=== PATIENT | female | born 1980 | race Caucasian/White ===

== ENCOUNTER 2018-04-07 13:50 | Inpatient (IN) | payer MEDICAID ==
[~2018-04-07] VITALS: Ht 157.5 cm; Wt 52.2 kg
[2018-04-07 15:36] VITALS: BP 125/69
[2018-04-07] MEDS ORDERED: VENL-68 PO (16:27)
[2018-04-07] MEDS ORDERED: TRAZ-220 PO (16:27)
[2018-04-07] MEDS ORDERED: SUMA100T PO (16:27)
[2018-04-07] MEDS ORDERED: LAMO100 PO (16:27)
[2018-04-07] MEDS ORDERED: GABA-533 PO (16:27)
[2018-04-07] MEDS ORDERED: BUPR1FIL SL (16:27)
[2018-04-07] MEDS ORDERED: TOPI25 PO (16:27)
[2018-04-07 17:15] VITALS: BP 123/76
[2018-04-07] MEDS: LORazepam 2 MG TABLET PO PRN (17:29)
[2018-04-07] MEDS ORDERED: PNEUMOCOCCAL VACCINE POLYVALENT 0.5 ML VIAL [PPSV23] IM ONE (18:15)
[2018-04-07] MEDS: LamoTRIgine 100 MG TABLET PO SCH (20:45)
[2018-04-07] MEDS: TOPIRAMATE 25 MG TABLET PO SCH (20:45)
[2018-04-07] MEDS: ZOLPIDEM TARTRATE 10 MG TABLET PO PRN (20:45)
[2018-04-08 04:08] VITALS: BP 120/78
[2018-04-08] MEDS: LORazepam 2 MG TABLET PO PRN ×2 (07:11→16:40)
[2018-04-08] MEDS: SUMAtriptan SUCCINATE 100 MG TABLET PO PRN (07:20)
[2018-04-08 08:18] VITALS: BP 106/69
[2018-04-08 08:57] LABS: BASOPHILS % (AUTO) 1.9 % (0.0-2.0); HEMATOCRIT 38.6 % (36-46); HEMOGLOBIN 13.3 g/dL (12.0-16.0); LYMPHOCYTES # (AUTO) 1.3 K/uL (1.0-4.8); LYMPHOCYTES % (AUTO) 37.6 % (22.0-44.0); MEAN CORPUSCULAR HEMOGLOBIN 31.8 pg (26.0-34.0); MEAN CORPUSCULAR HGB CONC 34.5 G/dL (31.0-37.0); MEAN CORPUSCULAR VOLUME 92 fL (80-100); MONOCYTES # (AUTO) 0.2 K/uL (0.1-1.0); MONOCYTES % (AUTO) 7.1 % (2.0-9.0); NEUTROPHILS # (AUTO) 1.5 K/uL (1.8-7.7); NEUTROPHILS % (AUTO) 44.4 % (40.0-70.0); PLATELET COUNT (AUTO) 254 K/uL (150-450); RED BLOOD CELL COUNT(AUTO) 4.18 MIL/uL (4.00-5.20); RED CELL DISTRIBUTION WIDTH 12.5 % (11.5-14.5)
[2018-04-08] MEDS ORDERED: NICOTINE 7 MG/24 HOUR PATCH TD SCH (09:00)
[2018-04-08] MEDS: VENLAFAXINE HCL 75 MG ER CAPSULE PO SCH (09:12)
[2018-04-08] MEDS: BusPIRone HCL 5 MG TABLET PO SCH ×3 (09:13→16:40)
[2018-04-08] MEDS: QUEtiapine FUMARATE 25 MG TABLET PO SCH ×2 (09:13→16:40)
[2018-04-08 09:54] LABS: ALANINE AMINOTRANSFERASE 23 U/L (12-78); ALBUMIN 3.7 g/dL (3.4-5.0); ALKALINE PHOSPHATASE 60 U/L (46-116); ANION GAP 7 mmol/L (8-16); ASPARTATE AMINOTRANSFERASE 15 U/L (15-37); BILIRUBIN,TOTAL 0.3 mg/dL (0.1-1.0); CALCIUM, TOTAL 8.4 mg/dL (8.8-10.5); CARBON DIOXIDE 27 mmol/L (22-29); CHLORIDE 106 mmol/L (98-107); CHOL/HDL RATIO 3.7 (3.9-5.7); CHOLESTEROL 209 mg/dL (131-200); CREATININE 0.89 mg/dL (0.60-1.30); FREE T4 (FREE THYROXINE) 0.79 ng/dL (0.76-1.46); GLOMERULAR FILTR. RATE CALC > 60 mL/min (>60); GLUCOSE,RANDOM 109 mg/dL (70-110); HCG,QUANTITATIVE 1 mIU/mL (0-6); HDL CHOLESTEROL 56 mg/dL (40-60); LDL CHOL (CALC.) 137 mg/dL (0-130); POTASSIUM 3.7 mmol/L (3.5-5.1); SODIUM SERUM 140 mmol/L (136-145); THYROID STIMULATING HORMONE 0.94 uIU/mL (0.36-3.74); TOTAL PROTEIN, SERUM 6.5 g/dL (6.4-8.2); TRIGLYCERIDES 79 mg/dL (15-150); UREA NITROGEN, BLOOD 12 mg/dL (7-18)
[2018-04-08] MEDS ORDERED: ACETAMINOPHEN 325 MG TABLET PO PRN (10:15)
[2018-04-08] MEDS: BACITRACIN 28.4 GM OINTMENT TP SCH ×2 (10:33→16:40)
[2018-04-08] MEDS ORDERED: CloNIDine HCL 0.1 MG TABLET PO PRN (11:15)
[2018-04-08] MEDS ORDERED: ALBUTEROL SULFATE HFA 90 MCG/PUFF 8 GM INHALER IH PRN (11:15)
[2018-04-08] MEDS ORDERED: MAGNESIUM HYDROXIDE SUSPENSION 30 ML UDCUP PO PRN (11:15)
[2018-04-08] MEDS ORDERED: PETROLATUM,WHITE 71 GM JELLY TP PRN (11:15)
[2018-04-08] MEDS ORDERED: DOCUSATE SODIUM 100 MG CAPSULE PO PRN (11:15)
[2018-04-08] MEDS ORDERED: MAG HYDROX/AL HYDROX/SIMETH ES 30 ML SUSPENSION UDCUP PO PRN (11:15)
[2018-04-08] MEDS ORDERED: ONDANSETRON HCL 4 MG TABLET PO PRN (11:15)
[2018-04-08] MEDS ORDERED: LOPERAMIDE HCL 2 MG CAPSULE PO PRN (11:15)
[2018-04-08 13:23] VITALS: BP 118/65
[2018-04-08 16:00] VITALS: BP 106/68
[2018-04-08] MEDS: TOPIRAMATE 25 MG TABLET PO SCH (20:31)
[2018-04-08] MEDS: LamoTRIgine 100 MG TABLET PO SCH (20:32)
[2018-04-09 01:50] VITALS: BP 103/72
[2018-04-09] MEDS: ZOLPIDEM TARTRATE 10 MG TABLET PO PRN ×2 (02:04→20:03)
[2018-04-09] MEDS: ACETAMINOPHEN 325 MG TABLET PO PRN (02:05)
[2018-04-09] MEDS: IBUPROFEN 400 MG TABLET PO PRN ×2 (07:07→15:39)
[2018-04-09 07:08] VITALS: BP 106/67
[2018-04-09 08:25] VITALS: BP 111/69
[2018-04-09] MEDS: NICOTINE 14 MG/24 HOUR PATCH TD SCH (09:00)
[2018-04-09 09:04] LABS: HEMOGLOBIN A1C 5.5 % (4.5-6.2)
[2018-04-09] MEDS: QUEtiapine FUMARATE 100 MG TABLET PO SCH ×2 (09:11→16:05)
[2018-04-09] MEDS: GABAPENTIN 400 MG CAPSULE PO SCH ×3 (09:11→16:05)
[2018-04-09] MEDS: LORazepam 2 MG TABLET PO PRN ×3 (09:11→22:12)
[2018-04-09] MEDS: BusPIRone HCL 10 MG TABLET PO SCH ×3 (09:11→16:04)
[2018-04-09] MEDS: VENLAFAXINE HCL 75 MG ER CAPSULE PO SCH (09:11)
[2018-04-09 09:14] LABS: CHOL/HDL RATIO 4.3 (3.9-5.7)
[2018-04-09] MEDS: BACITRACIN 28.4 GM OINTMENT TP SCH ×2 (09:16→16:05)
[2018-04-09 09:30] LABS: THYROID STIMULATING HORMONE 0.5 uIU/mL (0.36-3.74)
[2018-04-09 16:03] VITALS: BP 128/81
[2018-04-09 18:00] LABS: FOLATE SERUM 12.4 ng/mL (5.4-)
[2018-04-09] MEDS: LamoTRIgine 100 MG TABLET PO SCH (20:02)
[2018-04-09] MEDS: TOPIRAMATE 25 MG TABLET PO SCH (20:03)
[2018-04-10 03:57] VITALS: BP 105/75
[2018-04-10] MEDS: ACETAMINOPHEN 325 MG TABLET PO PRN ×2 (04:05→16:13)
[2018-04-10] MEDS: LORazepam 2 MG TABLET PO PRN ×4 (04:05→23:00)
[2018-04-10] MEDS: GABAPENTIN 400 MG CAPSULE PO SCH ×3 (08:20→16:11)
[2018-04-10] MEDS: QUEtiapine FUMARATE 100 MG TABLET PO SCH ×2 (08:20→16:11)
[2018-04-10] MEDS: BusPIRone HCL 10 MG TABLET PO SCH ×3 (08:20→16:11)
[2018-04-10] MEDS: VENLAFAXINE HCL 75 MG ER CAPSULE PO SCH (08:20)
[2018-04-10] MEDS: NICOTINE 14 MG/24 HOUR PATCH TD SCH (08:26)
[2018-04-10] MEDS: BACITRACIN 28.4 GM OINTMENT TP SCH ×2 (08:26→16:11)
[2018-04-10 08:29] VITALS: BP 100/80
[2018-04-10] MEDS: IBUPROFEN 400 MG TABLET PO PRN ×2 (09:10→20:18)
[2018-04-10 16:15] VITALS: BP 112/66
[2018-04-10] MEDS: TOPIRAMATE 25 MG TABLET PO SCH (20:16)
[2018-04-10] MEDS: LamoTRIgine 100 MG TABLET PO SCH (20:16)
[2018-04-10] MEDS: ZOLPIDEM TARTRATE 10 MG TABLET PO PRN (20:23)
[2018-04-11 01:07] VITALS: BP 140/85
[2018-04-11] MEDS: ACETAMINOPHEN 325 MG TABLET PO PRN (01:10)
[2018-04-11] MEDS: LORazepam 2 MG TABLET PO PRN ×4 (06:45→20:32)
[2018-04-11] MEDS: NICOTINE 14 MG/24 HOUR PATCH TD SCH (09:00)
[2018-04-11 09:18] VITALS: BP 134/74
[2018-04-11] MEDS: BusPIRone HCL 10 MG TABLET PO SCH (09:52)
[2018-04-11] MEDS: GABAPENTIN 400 MG CAPSULE PO SCH ×3 (09:52→16:14)
[2018-04-11] MEDS: QUEtiapine FUMARATE 100 MG TABLET PO SCH ×2 (09:52→16:15)
[2018-04-11] MEDS: BACITRACIN 28.4 GM OINTMENT TP SCH ×2 (09:52→16:15)
[2018-04-11] MEDS: VENLAFAXINE HCL 75 MG ER CAPSULE PO SCH (09:52)
[2018-04-11] MEDS: BusPIRone HCL 15 MG TABLET PO SCH ×2 (13:01→16:14)
[2018-04-11] MEDS: IBUPROFEN 400 MG TABLET PO PRN (13:02)
[2018-04-11 16:13] VITALS: BP 133/84
[2018-04-11] MEDS: LamoTRIgine 100 MG TABLET PO SCH (20:31)
[2018-04-11] MEDS: TOPIRAMATE 25 MG TABLET PO SCH (20:32)
[2018-04-12 02:44] VITALS: BP 129/69
[2018-04-12] MEDS: IBUPROFEN 400 MG TABLET PO PRN (02:44)
[2018-04-12] MEDS: LORazepam 2 MG TABLET PO PRN ×4 (03:55→22:01)
[2018-04-12] MEDS: NICOTINE 14 MG/24 HOUR PATCH TD SCH (09:00)
[2018-04-12 09:10] VITALS: BP 112/72
[2018-04-12] MEDS: GABAPENTIN 400 MG CAPSULE PO SCH ×3 (09:10→16:04)
[2018-04-12] MEDS: VENLAFAXINE HCL 75 MG ER CAPSULE PO SCH (09:10)
[2018-04-12] MEDS: FOLIC ACID 1 MG TABLET PO SCH (09:11)
[2018-04-12] MEDS: QUEtiapine FUMARATE 100 MG TABLET PO SCH ×2 (09:11→16:05)
[2018-04-12] MEDS: BusPIRone HCL 15 MG TABLET PO SCH ×3 (09:11→16:05)
[2018-04-12] MEDS: BACITRACIN 28.4 GM OINTMENT TP SCH ×2 (09:12→16:05)
[2018-04-12] MEDS: SUMAtriptan SUCCINATE 100 MG TABLET PO PRN (10:30)
[2018-04-12 16:00] VITALS: BP 110/83
[2018-04-12] MEDS: TOPIRAMATE 25 MG TABLET PO SCH (20:18)
[2018-04-12] MEDS: LamoTRIgine 100 MG TABLET PO SCH (20:18)
[2018-04-12] MEDS: ZOLPIDEM TARTRATE 10 MG TABLET PO PRN (20:38)
[2018-04-13 04:20] VITALS: BP 130/72
[2018-04-13] MEDS: LORazepam 2 MG TABLET PO PRN ×4 (04:24→22:20)
[2018-04-13] MEDS: IBUPROFEN 400 MG TABLET PO PRN (07:34)
[2018-04-13 08:24] VITALS: BP 114/64
[2018-04-13] MEDS: GABAPENTIN 400 MG CAPSULE PO SCH ×3 (08:44→16:16)
[2018-04-13] MEDS: QUEtiapine FUMARATE 100 MG TABLET PO SCH (08:44)
[2018-04-13] MEDS: BusPIRone HCL 15 MG TABLET PO SCH ×3 (08:44→16:16)
[2018-04-13] MEDS: VENLAFAXINE HCL 75 MG ER CAPSULE PO SCH (08:45)
[2018-04-13] MEDS: FOLIC ACID 1 MG TABLET PO SCH (08:45)
[2018-04-13] MEDS: NICOTINE 14 MG/24 HOUR PATCH TD SCH (08:48)
[2018-04-13 09:06] LABS: BASOPHILS % (AUTO) 1.1 % (0.0-2.0); EOSINOPHILS % (AUTO) 4.4 % (1.0-6.0); HEMATOCRIT 39.6 % (36-46); HEMOGLOBIN 13.9 g/dL (12.0-16.0); LYMPHOCYTES # (AUTO) 1.6 K/uL (1.0-4.8); LYMPHOCYTES % (AUTO) 36.1 % (22.0-44.0); MEAN CORPUSCULAR HEMOGLOBIN 32.2 pg (26.0-34.0); MEAN CORPUSCULAR HGB CONC 35.1 G/dL (31.0-37.0); MEAN CORPUSCULAR VOLUME 92 fL (80-100); MONOCYTES # (AUTO) 0.3 K/uL (0.1-1.0); NEUTROPHILS # (AUTO) 2.3 K/uL (1.8-7.7); NEUTROPHILS % (AUTO) 52.4 % (40.0-70.0); PLATELET COUNT (AUTO) 247 K/uL (150-450); RED BLOOD CELL COUNT(AUTO) 4.32 MIL/uL (4.00-5.20); RED CELL DISTRIBUTION WIDTH 12.5 % (11.5-14.5)
[2018-04-13 09:28] LABS: AMPHET/METH SCREEN,URINE NEGATIVE (NEGATIVE); BARBITURATE SCREEN, URINE NEGATIVE (NEGATIVE); BENZODIAZEPINES SCREEN,URINE NEGATIVE (NEGATIVE); CANNABINOID SCREEN,URINE NEGATIVE (NEGATIVE); COCAINE SCREEN,URINE NEGATIVE (NEGATIVE); METHADONE SCREEN, URINE NEGATIVE (NEGATIVE); OPIATE SCREEN,URINE NEGATIVE (NEGATIVE)
[2018-04-13 09:32] LABS: PHENCYCLIDINE SCREEN,URINE NEGATIVE (NEGATIVE)
[2018-04-13] MEDS: BACITRACIN 28.4 GM OINTMENT TP SCH ×2 (09:41→16:17)
[2018-04-13 10:29] LABS: APPEARANCE,URINE CLOUDY (CLEAR); BILIRUBIN,URINE NEGATIVE (NEGATIVE); GLUCOSE, URINE (UA) NEGATIVE (NEGATIVE); KETONES,URINE NEGATIVE (NEGATIVE); LEUKOCYTE ESTERASE ,URINE NEGATIVE (NEGATIVE); NITRATE,URINE NEGATIVE (NEGATIVE); OCCULT BLOOD,URINE NEGATIVE (NEGATIVE); PROTEIN,URINE NEGATIVE (NEGATIVE); UROBILINOGEN,URINE 0.2 mg/dL (<=1.0)
[2018-04-13 16:00] VITALS: BP 116/89
[2018-04-13] MEDS: QUEtiapine FUMARATE 200 MG TABLET PO SCH (16:16)
[2018-04-13] MEDS: LamoTRIgine 100 MG TABLET PO SCH (20:42)
[2018-04-13] MEDS: TOPIRAMATE 25 MG TABLET PO SCH (20:42)
[2018-04-13] MEDS: ZOLPIDEM TARTRATE 10 MG TABLET PO PRN (23:48)
[2018-04-14] MEDS: LORazepam 2 MG TABLET PO PRN ×3 (03:31→13:50)
[2018-04-14 04:10] VITALS: BP 112/80
[2018-04-14 08:18] VITALS: BP 115/77
[2018-04-14] MEDS: NICOTINE 14 MG/24 HOUR PATCH TD SCH (09:00)
[2018-04-14] MEDS: VENLAFAXINE HCL 75 MG ER CAPSULE PO SCH (09:44)
[2018-04-14] MEDS: QUEtiapine FUMARATE 200 MG TABLET PO SCH ×2 (09:45→16:39)
[2018-04-14] MEDS: GABAPENTIN 400 MG CAPSULE PO SCH ×3 (09:45→16:38)
[2018-04-14] MEDS: BusPIRone HCL 15 MG TABLET PO SCH ×3 (09:45→16:38)
[2018-04-14] MEDS: BACITRACIN 28.4 GM OINTMENT TP SCH ×2 (09:45→16:39)
[2018-04-14] MEDS: FOLIC ACID 1 MG TABLET PO SCH (09:45)
[2018-04-14] MEDS: ACETAMINOPHEN 325 MG TABLET PO PRN (09:46)
[2018-04-14] MEDS: SUMAtriptan SUCCINATE 100 MG TABLET PO PRN (13:07)
[2018-04-14 16:45] VITALS: BP 109/68
[2018-04-14] MEDS: LamoTRIgine 100 MG TABLET PO SCH (20:28)
[2018-04-14] MEDS: TOPIRAMATE 25 MG TABLET PO SCH (20:28)
[2018-04-14 21:52] VITALS: BP 112/70
[2018-04-14] MEDS: IBUPROFEN 400 MG TABLET PO PRN (21:53)
[2018-04-14] MEDS: ZOLPIDEM TARTRATE 10 MG TABLET PO PRN (22:49)
[2018-04-15] MEDS: LORazepam 2 MG TABLET PO PRN ×3 (00:39→15:02)
[2018-04-15] MEDS: HALOPERIDOL 5 MG TABLET PO PRN (02:43)
[2018-04-15 04:45] VITALS: BP 125/77
[2018-04-15 08:06] LABS: BASOPHILS % (AUTO) 1.6 % (0.0-2.0); EOSINOPHILS % (AUTO) 3.7 % (1.0-6.0); HEMATOCRIT 40.8 % (36-46); LYMPHOCYTES # (AUTO) 1.9 K/uL (1.0-4.8); LYMPHOCYTES % (AUTO) 38.2 % (22.0-44.0); MEAN CORPUSCULAR HEMOGLOBIN 31.7 pg (26.0-34.0); MEAN CORPUSCULAR HGB CONC 34.4 G/dL (31.0-37.0); MEAN CORPUSCULAR VOLUME 92 fL (80-100); MONOCYTES # (AUTO) 0.3 K/uL (0.1-1.0); MONOCYTES % (AUTO) 5.7 % (2.0-9.0); NEUTROPHILS # (AUTO) 2.5 K/uL (1.8-7.7); NEUTROPHILS % (AUTO) 50.8 % (40.0-70.0); PLATELET COUNT (AUTO) 272 K/uL (150-450); RED BLOOD CELL COUNT(AUTO) 4.43 MIL/uL (4.00-5.20); RED CELL DISTRIBUTION WIDTH 12.7 % (11.5-14.5)
[2018-04-15 08:33] VITALS: BP 100/58
[2018-04-15] MEDS: NICOTINE 14 MG/24 HOUR PATCH TD SCH (09:00)
[2018-04-15] MEDS: QUEtiapine FUMARATE 200 MG TABLET PO SCH ×2 (09:08→16:15)
[2018-04-15] MEDS: VENLAFAXINE HCL 75 MG ER CAPSULE PO SCH (09:09)
[2018-04-15] MEDS: BusPIRone HCL 15 MG TABLET PO SCH ×2 (09:09→12:23)
[2018-04-15] MEDS: GABAPENTIN 400 MG CAPSULE PO SCH ×3 (09:09→16:15)
[2018-04-15] MEDS: FOLIC ACID 1 MG TABLET PO SCH (09:09)
[2018-04-15] MEDS: BACITRACIN 28.4 GM OINTMENT TP SCH ×2 (09:15→17:00)
[2018-04-15 10:40] VITALS: BP 105/89
[2018-04-15] MEDS ORDERED: BusPIRone HCL 10 MG TABLET PO SCH (13:00)
[2018-04-15] MEDS: BusPIRone HCL 10 MG TABLET PO SCH (16:13)
[2018-04-15 16:16] VITALS: BP 124/70
[2018-04-15] MEDS: LamoTRIgine 100 MG TABLET PO SCH (20:21)
[2018-04-15] MEDS: TOPIRAMATE 25 MG TABLET PO SCH (20:21)
[2018-04-15] MEDS: ZOLPIDEM TARTRATE 10 MG TABLET PO PRN (21:36)
[2018-04-16] MEDS: LORazepam 2 MG TABLET PO PRN ×3 (01:11→13:41)
[2018-04-16] MEDS: HALOPERIDOL 5 MG TABLET PO PRN (02:15)
[2018-04-16 04:52] VITALS: BP 127/66
[2018-04-16] MEDS: VENLAFAXINE HCL 75 MG ER CAPSULE PO SCH (08:40)
[2018-04-16] MEDS: GABAPENTIN 400 MG CAPSULE PO SCH ×3 (08:40→17:04)
[2018-04-16] MEDS: QUEtiapine FUMARATE 200 MG TABLET PO SCH ×2 (08:40→17:04)
[2018-04-16] MEDS: FOLIC ACID 1 MG TABLET PO SCH (08:40)
[2018-04-16] MEDS: BusPIRone HCL 10 MG TABLET PO SCH ×3 (08:40→17:04)
[2018-04-16] MEDS: NICOTINE 14 MG/24 HOUR PATCH TD SCH (08:45)
[2018-04-16 16:41] VITALS: BP 106/62
[2018-04-16] MEDS: BACITRACIN 28.4 GM OINTMENT TP SCH (17:05)
[2018-04-16] MEDS: LamoTRIgine 100 MG TABLET PO SCH (20:29)
[2018-04-16] MEDS: TOPIRAMATE 25 MG TABLET PO SCH (20:29)
[2018-04-16] MEDS: ZOLPIDEM TARTRATE 10 MG TABLET PO PRN (20:51)
[2018-04-17 00:09] VITALS: BP 117/65
[2018-04-17] MEDS: LORazepam 2 MG TABLET PO PRN ×4 (00:12→21:03)
[2018-04-17 08:17] VITALS: BP 100/56
[2018-04-17] MEDS: QUEtiapine FUMARATE 200 MG TABLET PO SCH ×2 (08:40→17:13)
[2018-04-17] MEDS: FOLIC ACID 1 MG TABLET PO SCH (08:40)
[2018-04-17] MEDS: GABAPENTIN 400 MG CAPSULE PO SCH ×3 (08:40→17:14)
[2018-04-17] MEDS: BACITRACIN 28.4 GM OINTMENT TP SCH ×2 (08:40→17:14)
[2018-04-17] MEDS: BusPIRone HCL 10 MG TABLET PO SCH ×3 (08:40→17:13)
[2018-04-17] MEDS: VENLAFAXINE HCL 75 MG ER CAPSULE PO SCH (08:40)
[2018-04-17] MEDS: NICOTINE 14 MG/24 HOUR PATCH TD SCH (08:41)
[2018-04-17 16:58] VITALS: BP 100/76
[2018-04-17] MEDS: LamoTRIgine 100 MG TABLET PO SCH (21:03)
[2018-04-17] MEDS: TOPIRAMATE 25 MG TABLET PO SCH (21:03)
[2018-04-18] MEDS: LORazepam 2 MG TABLET PO PRN ×4 (01:20→14:06)
[2018-04-18] MEDS: ZOLPIDEM TARTRATE 10 MG TABLET PO PRN (01:20)
[2018-04-18 01:21] VITALS: BP 108/70
[2018-04-18 08:22] VITALS: BP 107/57
[2018-04-18] MEDS: NICOTINE 14 MG/24 HOUR PATCH TD SCH (09:00)
[2018-04-18] MEDS: GABAPENTIN 400 MG CAPSULE PO SCH ×3 (09:35→16:28)
[2018-04-18] MEDS: QUEtiapine FUMARATE 200 MG TABLET PO SCH ×2 (09:35→16:28)
[2018-04-18] MEDS: BACITRACIN 28.4 GM OINTMENT TP SCH ×2 (09:35→16:27)
[2018-04-18] MEDS: FOLIC ACID 1 MG TABLET PO SCH (09:35)
[2018-04-18] MEDS: BusPIRone HCL 10 MG TABLET PO SCH ×3 (09:36→16:28)
[2018-04-18] MEDS: VENLAFAXINE HCL 75 MG ER CAPSULE PO SCH (09:36)
[2018-04-18 09:38] VITALS: BP 121/75
[2018-04-18 14:05] VITALS: BP 129/68
[2018-04-18] MEDS: ACETAMINOPHEN 325 MG TABLET PO PRN (14:05)
[2018-04-18 16:00] VITALS: BP 113/71
[2018-04-18] MEDS: LamoTRIgine 100 MG TABLET PO SCH (20:17)
[2018-04-18] MEDS: TOPIRAMATE 25 MG TABLET PO SCH (20:17)
[2018-04-18] MEDS: HALOPERIDOL 5 MG TABLET PO PRN (21:24)
[2018-04-19 00:20] VITALS: BP 114/71
[2018-04-19] MEDS: ZOLPIDEM TARTRATE 10 MG TABLET PO PRN ×2 (00:40→20:23)
[2018-04-19] MEDS: HALOPERIDOL 5 MG TABLET PO PRN ×2 (03:54→16:44)
[2018-04-19 08:26] VITALS: BP 112/65
[2018-04-19] MEDS: QUEtiapine FUMARATE 200 MG TABLET PO SCH ×3 (09:49→20:23)
[2018-04-19] MEDS: LORazepam 2 MG TABLET PO PRN ×3 (09:49→22:37)
[2018-04-19] MEDS: GABAPENTIN 400 MG CAPSULE PO SCH ×3 (09:49→16:44)
[2018-04-19] MEDS: FOLIC ACID 1 MG TABLET PO SCH (09:49)
[2018-04-19] MEDS: BusPIRone HCL 10 MG TABLET PO SCH ×3 (09:49→16:44)
[2018-04-19] MEDS: VENLAFAXINE HCL 75 MG ER CAPSULE PO SCH (09:49)
[2018-04-19] MEDS: BACITRACIN 28.4 GM OINTMENT TP SCH ×2 (09:50→16:45)
[2018-04-19 16:11] VITALS: BP 115/70
[2018-04-19] MEDS: LamoTRIgine 100 MG TABLET PO SCH (20:23)
[2018-04-19] MEDS: TOPIRAMATE 25 MG TABLET PO SCH (20:23)
[2018-04-19] MEDS: ACETAMINOPHEN 325 MG TABLET PO PRN (22:37)
[2018-04-20] MEDS: IBUPROFEN 400 MG TABLET PO PRN (01:05)
[2018-04-20] MEDS: HALOPERIDOL 5 MG TABLET PO PRN ×2 (01:05→16:08)
[2018-04-20 01:26] VITALS: BP 110/70
[2018-04-20] MEDS: LORazepam 2 MG TABLET PO PRN ×3 (03:49→16:08)
[2018-04-20] MEDS: QUEtiapine FUMARATE 200 MG TABLET PO SCH ×2 (08:34→20:24)
[2018-04-20] MEDS: BusPIRone HCL 10 MG TABLET PO SCH ×3 (08:34→16:07)
[2018-04-20] MEDS: GABAPENTIN 400 MG CAPSULE PO SCH ×3 (08:34→16:06)
[2018-04-20] MEDS: VENLAFAXINE HCL 75 MG ER CAPSULE PO SCH (08:34)
[2018-04-20] MEDS: FOLIC ACID 1 MG TABLET PO SCH (08:35)
[2018-04-20] MEDS: BACITRACIN 28.4 GM OINTMENT TP SCH ×2 (08:35→16:07)
[2018-04-20 08:40] VITALS: BP 100/59
[2018-04-20 16:00] VITALS: BP 110/71
[2018-04-20] MEDS: LamoTRIgine 100 MG TABLET PO SCH (20:24)
[2018-04-20] MEDS: TOPIRAMATE 25 MG TABLET PO SCH (20:24)
[2018-04-20] MEDS: ZOLPIDEM TARTRATE 10 MG TABLET PO PRN (21:36)
[2018-04-21 00:45] VITALS: BP 106/56
[2018-04-21 01:40] VITALS: BP 128/80
[2018-04-21] MEDS: HALOPERIDOL 5 MG TABLET PO PRN (01:43)
[2018-04-21] MEDS: LORazepam 2 MG TABLET PO PRN ×4 (01:43→22:57)
[2018-04-21] MEDS: IBUPROFEN 400 MG TABLET PO PRN (05:35)
[2018-04-21 08:00] VITALS: BP 114/59
[2018-04-21] MEDS: VENLAFAXINE HCL 75 MG ER CAPSULE PO SCH (08:10)
[2018-04-21] MEDS: BACITRACIN 28.4 GM OINTMENT TP SCH ×2 (08:11→16:30)
[2018-04-21] MEDS: FOLIC ACID 1 MG TABLET PO SCH (08:11)
[2018-04-21] MEDS: GABAPENTIN 400 MG CAPSULE PO SCH ×3 (08:11→16:30)
[2018-04-21] MEDS: BusPIRone HCL 10 MG TABLET PO SCH ×3 (08:11→16:30)
[2018-04-21] MEDS: QUEtiapine FUMARATE 200 MG TABLET PO SCH ×2 (08:11→20:49)
[2018-04-21 16:17] VITALS: BP 112/68
[2018-04-21] MEDS: TOPIRAMATE 25 MG TABLET PO SCH (20:49)
[2018-04-21] MEDS: LamoTRIgine 100 MG TABLET PO SCH (20:49)
[2018-04-21] MEDS: ZOLPIDEM TARTRATE 10 MG TABLET PO PRN (21:30)
[2018-04-22] MEDS: HALOPERIDOL 5 MG TABLET PO PRN (02:45)
[2018-04-22 05:35] VITALS: BP 118/72
[2018-04-22] MEDS: LORazepam 2 MG TABLET PO PRN (05:40)
[2018-04-22 08:42] VITALS: BP 114/70
[2018-04-22] MEDS: BACITRACIN 28.4 GM OINTMENT TP SCH (08:54)
[2018-04-22] MEDS: QUEtiapine FUMARATE 200 MG TABLET PO SCH (08:54)
[2018-04-22] MEDS: VENLAFAXINE HCL 75 MG ER CAPSULE PO SCH (08:55)
[2018-04-22] MEDS: BusPIRone HCL 10 MG TABLET PO SCH (08:55)
[2018-04-22] MEDS: GABAPENTIN 400 MG CAPSULE PO SCH (08:55)
[2018-04-22] MEDS: FOLIC ACID 1 MG TABLET PO SCH (08:55)
[2018-04-22] MEDS: IBUPROFEN 400 MG TABLET PO PRN (09:18)
[2018-04-22] MEDS ORDERED: QUET200T PO ×2 (10:07)
[2018-04-22] MEDS ORDERED: BUSP10TA23 PO (10:07)
[2018-04-22] MEDS ORDERED: FOLI1 PO (10:07)
== END 2018-04-22 11:40 | disposition home or self-care (01) | DRG 751 ==
LOC: B3A 15:52
PROVIDERS: ADMIT Psychiatry & Neurology Psychiatry; ATTEND Psychiatry & Neurology Psychiatry
DX: F33.2 Major depressive disorder, recurrent severe without psychotic features (principal); R45.851 Suicidal ideations; E83.51 Hypocalcemia; G40.909 Epilepsy, unspecified, not intractable, without status epilepticus; F60.3 Borderline personality disorder; F41.9 Anxiety disorder, unspecified; D72.819 Decreased white blood cell count, unspecified; G43.909 Migraine, unspecified, not intractable, without status migrainosus; E78.5 Hyperlipidemia, unspecified; R45.87 Impulsiveness; G47.00 Insomnia, unspecified; Z59.0 Homelessness; Z81.8 Family history of other mental and behavioral disorders; Z79.899 Other long term (current) drug therapy
CPT/HCPCS: 80307; 82306; 82607; 82746; 83036; 84439; 84443; 87081; 90471

== ENCOUNTER 2019-02-11 12:58 | Inpatient (IN) | payer MEDICAID ==
[~2019-02-11] VITALS: Ht 157.5 cm; Wt 56.9 kg
[~2019-02-11 12:58] MED LIST: BUSP10TA23 PO; FOLI1 PO; GABA-533 PO; LAMO100 PO; QUET200T PO; TOPI25 PO; VENL-68 PO
[2019-02-11 14:56] VITALS: BP 117/76
[2019-02-11] MEDS ORDERED: ZOLPIDEM TARTRATE 10 MG TABLET PO PRN (15:15)
[2019-02-11] MEDS ORDERED: MAG HYDROX/AL HYDROX/SIMETH ES 30 ML SUSPENSION UDCUP PO PRN (17:00)
[2019-02-11] MEDS ORDERED: ONDANSETRON HCL 4 MG TABLET PO PRN (17:00)
[2019-02-11] MEDS ORDERED: SUMAtriptan SUCCINATE 100 MG TABLET PO PRN ×2 (17:00→18:45)
[2019-02-11] MEDS ORDERED: ALBUTEROL SULFATE HFA 90 MCG/PUFF 8 GM INHALER IH PRN (17:00)
[2019-02-11] MEDS ORDERED: DOCUSATE SODIUM 100 MG CAPSULE PO PRN (17:00)
[2019-02-11] MEDS ORDERED: GuaiFENesin/D-METHORPHAN [SUGAR-FREE] 200-20MG/10 ML SYRUP UDCUP PO PRN (17:00)
[2019-02-11] MEDS ORDERED: PETROLATUM,WHITE 28 GM JELLY TP PRN (17:00)
[2019-02-11] MEDS ORDERED: NICOTINE 14 MG/24 HOUR PATCH TD PRN (17:00)
[2019-02-11] MEDS ORDERED: MAGNESIUM HYDROXIDE SUSPENSION 30 ML UDCUP PO PRN (17:00)
[2019-02-11] MEDS ORDERED: CloNIDine HCL 0.1 MG TABLET PO PRN (17:00)
[2019-02-11] MEDS ORDERED: LOPERAMIDE HCL 2 MG CAPSULE PO PRN (17:00)
[2019-02-11] MEDS: ACETAMINOPHEN 325 MG TABLET PO PRN (17:20)
[2019-02-11] MEDS: LORazepam 2 MG TABLET PO PRN ×2 (17:20→21:26)
[2019-02-11] MEDS ORDERED: TEMA15CA PO (18:06)
[2019-02-11] MEDS ORDERED: CLON1 PO (18:06)
[2019-02-11] MEDS ORDERED: SUMA100T PO (18:06)
[2019-02-11] MEDS ORDERED: VORT5TAB PO (18:06)
[2019-02-11] MEDS: TOPIRAMATE 25 MG TABLET PO SCH (20:17)
[2019-02-11] MEDS: LamoTRIgine 100 MG TABLET PO SCH (20:18)
[2019-02-12 00:23] VITALS: BP 110/85
[2019-02-12] MEDS: LORazepam 2 MG TABLET PO PRN ×3 (02:11→17:26)
[2019-02-12] MEDS: HALOPERIDOL 5 MG TABLET PO PRN (02:11)
[2019-02-12] MEDS: IBUPROFEN 400 MG TABLET PO PRN ×2 (03:03→17:33)
[2019-02-12 08:16] VITALS: BP 101/61
[2019-02-12 08:43] LABS: BASOPHILS % (AUTO) 0.9 % (0.0-2.0); EOSINOPHILS % (AUTO) 10.4 % (1.0-6.0); HEMATOCRIT 38.7 % (36-46); HEMOGLOBIN 12.8 g/dL (12.0-16.0); LYMPHOCYTES % (AUTO) 23.9 % (22.0-44.0); MEAN CORPUSCULAR HEMOGLOBIN 30.5 pg (26.0-34.0); MEAN CORPUSCULAR HGB CONC 33.2 G/dL (31.0-37.0); MEAN CORPUSCULAR VOLUME 92 fL (80-100); MONOCYTES # (AUTO) 0.4 K/uL (0.1-1.0); MONOCYTES % (AUTO) 8.8 % (2.0-9.0); NEUTROPHILS # (AUTO) 2.4 K/uL (1.8-7.7); PLATELET COUNT (AUTO) 250 K/uL (150-450); RED BLOOD CELL COUNT(AUTO) 4.21 MIL/uL (4.00-5.20); RED CELL DISTRIBUTION WIDTH 14.2 % (11.5-14.5)
[2019-02-12] MEDS: SULFAMETHOX/TRIMETH DS 800-160 MG/TABLET PO SCH (09:11)
[2019-02-12] MEDS: BACITRACIN 28.4 GM OINTMENT TP SCH (09:11)
[2019-02-12 09:40] LABS: ALANINE AMINOTRANSFERASE 31 U/L (12-78); ALBUMIN 3.5 g/dL (3.4-5.0); ALKALINE PHOSPHATASE 62 U/L (46-116); ANION GAP 11 mmol/L (8-16); ASPARTATE AMINOTRANSFERASE 26 U/L (15-37); BILIRUBIN,TOTAL 0.4 mg/dL (0.1-1.0); CALCIUM, TOTAL 8.8 mg/dL (8.8-10.5); CARBON DIOXIDE 26 mmol/L (22-29); CHLORIDE 105 mmol/L (98-107); CHOL/HDL RATIO 3.9 (3.9-5.7); CHOLESTEROL 185 mg/dL (131-200); CREATININE 0.92 mg/dL (0.60-1.30); GLOMERULAR FILTR. RATE CALC > 60 mL/min (>60); GLUCOSE,RANDOM 88 mg/dL (70-110); HCG,QUANTITATIVE < 1 mIU/mL (0-6); HDL CHOLESTEROL 48 mg/dL (40-60); LDL CHOL (CALC.) 120 mg/dL (0-130); POTASSIUM 4.2 mmol/L (3.5-5.1); SODIUM SERUM 142 mmol/L (136-145); THYROID STIMULATING HORMONE 1.39 uIU/mL (0.36-3.74); TOTAL PROTEIN, SERUM 6.4 g/dL (6.4-8.2); TRIGLYCERIDES 87 mg/dL (15-150); UREA NITROGEN, BLOOD 10 mg/dL (7-18)
[2019-02-12] MEDS: VENLAFAXINE HCL 75 MG ER CAPSULE PO SCH (12:07)
[2019-02-12 16:22] VITALS: BP 110/67
[2019-02-12 17:19] VITALS: BP 121/66
[2019-02-12] MEDS: TOPIRAMATE 25 MG TABLET PO SCH (20:33)
[2019-02-12] MEDS: LamoTRIgine 100 MG TABLET PO SCH (20:34)
[2019-02-12] MEDS: TEMAZEPAM 15 MG CAPSULE PO SCH (20:34)
[2019-02-13 06:11] VITALS: BP 117/64
[2019-02-13] MEDS: LORazepam 2 MG TABLET PO PRN ×3 (06:14→17:17)
[2019-02-13] MEDS: IBUPROFEN 400 MG TABLET PO PRN ×2 (06:14→15:03)
[2019-02-13] MEDS: VENLAFAXINE HCL 75 MG ER CAPSULE PO SCH (09:10)
[2019-02-13] MEDS: SULFAMETHOX/TRIMETH DS 800-160 MG/TABLET PO SCH (09:10)
[2019-02-13] MEDS: BACITRACIN 28.4 GM OINTMENT TP SCH (09:11)
[2019-02-13 09:30] VITALS: BP 120/72
[2019-02-13] MEDS: ARIPiprazole 10 MG TABLET PO SCH (11:55)
[2019-02-13 15:03] VITALS: BP 118/68
[2019-02-13 16:03] VITALS: BP 101/62
[2019-02-13 17:14] VITALS: BP 126/90
[2019-02-13] MEDS: TEMAZEPAM 15 MG CAPSULE PO SCH (20:39)
[2019-02-13] MEDS: TOPIRAMATE 25 MG TABLET PO SCH (20:39)
[2019-02-13] MEDS: LamoTRIgine 100 MG TABLET PO SCH (20:39)
[2019-02-14 01:09] VITALS: BP 107/65
[2019-02-14] MEDS: IBUPROFEN 400 MG TABLET PO PRN ×2 (01:14→21:47)
[2019-02-14] MEDS: ACETAMINOPHEN 325 MG TABLET PO PRN (06:06)
[2019-02-14] MEDS: LORazepam 2 MG TABLET PO PRN ×3 (06:06→17:31)
[2019-02-14 08:12] VITALS: BP 110/62
[2019-02-14] MEDS: BACITRACIN 28.4 GM OINTMENT TP SCH (09:27)
[2019-02-14] MEDS: ARIPiprazole 10 MG TABLET PO SCH (09:28)
[2019-02-14] MEDS: VENLAFAXINE HCL 75 MG ER CAPSULE PO SCH (09:28)
[2019-02-14] MEDS: SULFAMETHOX/TRIMETH DS 800-160 MG/TABLET PO SCH (09:28)
[2019-02-14] MEDS: HALOPERIDOL 5 MG TABLET PO PRN ×2 (09:35→17:31)
[2019-02-14 16:34] VITALS: BP 108/68
[2019-02-14] MEDS: LamoTRIgine 100 MG TABLET PO SCH (20:41)
[2019-02-14] MEDS: TOPIRAMATE 25 MG TABLET PO SCH (20:42)
[2019-02-14] MEDS: TEMAZEPAM 15 MG CAPSULE PO SCH (20:46)
[2019-02-14 21:47] VITALS: BP 121/62
[2019-02-15] MEDS: IBUPROFEN 400 MG TABLET PO PRN ×3 (02:39→21:06)
[2019-02-15] MEDS: LORazepam 2 MG TABLET PO PRN ×4 (02:40→16:12)
[2019-02-15 02:45] VITALS: BP 102/63
[2019-02-15 07:20] VITALS: BP 119/61
[2019-02-15] MEDS: ACETAMINOPHEN 325 MG TABLET PO PRN ×2 (07:20→16:47)
[2019-02-15] MEDS: SULFAMETHOX/TRIMETH DS 800-160 MG/TABLET PO SCH (08:32)
[2019-02-15] MEDS: BACITRACIN 28.4 GM OINTMENT TP SCH (08:32)
[2019-02-15] MEDS: VENLAFAXINE HCL 75 MG ER CAPSULE PO SCH (08:32)
[2019-02-15] MEDS: ARIPiprazole 10 MG TABLET PO SCH (08:32)
[2019-02-15 08:51] VITALS: BP 102/62
[2019-02-15 16:16] VITALS: BP 119/75
[2019-02-15] MEDS: TOPIRAMATE 25 MG TABLET PO SCH (20:22)
[2019-02-15] MEDS: TEMAZEPAM 15 MG CAPSULE PO SCH (20:22)
[2019-02-15] MEDS: LamoTRIgine 100 MG TABLET PO SCH (20:22)
[2019-02-16 03:22] VITALS: BP 119/64
[2019-02-16] MEDS: LORazepam 2 MG TABLET PO PRN ×2 (03:31→08:31)
[2019-02-16] MEDS: ACETAMINOPHEN 325 MG TABLET PO PRN (03:31)
[2019-02-16 08:16] VITALS: BP 101/65
[2019-02-16] MEDS: VENLAFAXINE HCL 75 MG ER CAPSULE PO SCH (08:30)
[2019-02-16] MEDS: IBUPROFEN 400 MG TABLET PO PRN (08:30)
[2019-02-16] MEDS: SULFAMETHOX/TRIMETH DS 800-160 MG/TABLET PO SCH (08:30)
[2019-02-16] MEDS: ARIPiprazole 10 MG TABLET PO SCH (08:30)
[2019-02-16] MEDS: BACITRACIN 28.4 GM OINTMENT TP SCH (08:30)
[2019-02-16] MEDS ORDERED: ARIP10TA8 PO (10:13)
== END 2019-02-16 13:45 | disposition home or self-care (01) | DRG 751 ==
LOC: B3A 15:15
PROVIDERS: ADMIT Psychiatry & Neurology Psychiatry; ATTEND Psychiatry & Neurology Psychiatry
DX: F33.2 Major depressive disorder, recurrent severe without psychotic features (principal); R45.851 Suicidal ideations; G40.909 Epilepsy, unspecified, not intractable, without status epilepticus; F43.10 Post-traumatic stress disorder, unspecified; G43.909 Migraine, unspecified, not intractable, without status migrainosus; G89.29 Other chronic pain; M79.7 Fibromyalgia; E78.5 Hyperlipidemia, unspecified; Z88.8 Allergy status to other drugs, medicaments and biological substances
CPT/HCPCS: 83036; 84439; 84443

== ENCOUNTER 2019-03-16 10:48 | Inpatient (IN) | payer MEDICAID ==
[~2019-03-16] VITALS: Ht 157.5 cm; Wt 55.8 kg
[~2019-03-16 10:48] MED LIST changes: +ARIP10TA8 PO; -BUSP10TA23 PO; -FOLI1 PO; -GABA-533 PO; -QUET200T PO; +TEMA15CA PO
[2019-03-16 12:54] VITALS: BP 139/89
[2019-03-16] MEDS: HALOPERIDOL 5 MG TABLET PO PRN (14:04)
[2019-03-16] MEDS: LORazepam 2 MG TABLET PO PRN (14:04)
[2019-03-16] MEDS ORDERED: ONDANSETRON HCL 4 MG TABLET PO PRN (16:45)
[2019-03-16] MEDS ORDERED: LOPERAMIDE HCL 2 MG CAPSULE PO PRN (16:45)
[2019-03-16] MEDS ORDERED: MAG HYDROX/AL HYDROX/SIMETH ES 30 ML SUSPENSION UDCUP PO PRN (16:45)
[2019-03-16] MEDS ORDERED: DOCUSATE SODIUM 100 MG CAPSULE PO PRN (16:45)
[2019-03-16] MEDS ORDERED: ACETAMINOPHEN 325 MG TABLET PO PRN (16:45)
[2019-03-16] MEDS ORDERED: CloNIDine HCL 0.1 MG TABLET PO PRN (16:45)
[2019-03-16] MEDS ORDERED: MAGNESIUM HYDROXIDE SUSPENSION 30 ML UDCUP PO PRN (16:45)
[2019-03-16] MEDS ORDERED: PETROLATUM,WHITE 28 GM JELLY TP PRN (16:45)
[2019-03-16] MEDS ORDERED: NICOTINE 14 MG/24 HOUR PATCH TD PRN (16:45)
[2019-03-16] MEDS ORDERED: ALBUTEROL SULFATE HFA 90 MCG/PUFF 8 GM INHALER IH PRN (16:45)
[2019-03-16] MEDS ORDERED: GuaiFENesin/D-METHORPHAN [SUGAR-FREE] 200-20MG/10 ML SYRUP UDCUP PO PRN (16:45)
[2019-03-17] MEDS: HALOPERIDOL 5 MG TABLET PO PRN (00:24)
[2019-03-17] MEDS: ZOLPIDEM TARTRATE 10 MG TABLET PO PRN (00:24)
[2019-03-17 00:26] VITALS: BP 109/91
[2019-03-17 08:10] LABS: BASOPHILS % (AUTO) 1.1 % (0.0-2.0); EOSINOPHILS % (AUTO) 3.5 % (1.0-6.0); HEMATOCRIT 41.6 % (36-46); HEMOGLOBIN 13.5 g/dL (12.0-16.0); MEAN CORPUSCULAR HEMOGLOBIN 30.4 pg (26.0-34.0); MEAN CORPUSCULAR HGB CONC 32.6 G/dL (31.0-37.0); MEAN CORPUSCULAR VOLUME 93 fL (80-100); MONOCYTES # (AUTO) 0.3 K/uL (0.1-1.0); MONOCYTES % (AUTO) 5.3 % (2.0-9.0); NEUTROPHILS # (AUTO) 3.2 K/uL (1.8-7.7); NEUTROPHILS % (AUTO) 55.1 % (40.0-70.0); PLATELET COUNT (AUTO) 348 K/uL (150-450); RED BLOOD CELL COUNT(AUTO) 4.46 MIL/uL (4.00-5.20); RED CELL DISTRIBUTION WIDTH 14.3 % (11.5-14.5)
[2019-03-17 08:29] VITALS: BP 119/66
[2019-03-17 08:53] LABS: ALANINE AMINOTRANSFERASE 23 U/L (12-78); ALBUMIN 3.5 g/dL (3.4-5.0); ALKALINE PHOSPHATASE 76 U/L (46-116); ANION GAP 10 mmol/L (8-16); ASPARTATE AMINOTRANSFERASE 19 U/L (15-37); BILIRUBIN,TOTAL 0.5 mg/dL (0.1-1.0); CALCIUM, TOTAL 8.9 mg/dL (8.8-10.5); CARBON DIOXIDE 26 mmol/L (22-29); CHLORIDE 107 mmol/L (98-107); CHOL/HDL RATIO 3.9 (3.9-5.7); CHOLESTEROL 224 mg/dL (131-200); CREATININE 0.88 mg/dL (0.60-1.30); FREE T4 (FREE THYROXINE) 0.88 ng/dL (0.76-1.46); GLOMERULAR FILTR. RATE CALC > 60 mL/min (>60); GLUCOSE,RANDOM 87 mg/dL (70-110); HCG,QUANTITATIVE < 1 mIU/mL (0-6); HDL CHOLESTEROL 58 mg/dL (40-60); LDL CHOL (CALC.) 147 mg/dL (0-130); POTASSIUM 3.9 mmol/L (3.5-5.1); SODIUM SERUM 143 mmol/L (136-145); THYROID STIMULATING HORMONE 0.75 uIU/mL (0.36-3.74); TRIGLYCERIDES 97 mg/dL (15-150); UREA NITROGEN, BLOOD 13 mg/dL (7-18)
[2019-03-17] MEDS: LORazepam 2 MG TABLET PO PRN ×3 (09:09→21:40)
[2019-03-17] MEDS: VENLAFAXINE HCL 75 MG ER CAPSULE PO SCH (13:40)
[2019-03-17 16:15] VITALS: BP 113/65
[2019-03-17] MEDS: LamoTRIgine 100 MG TABLET PO SCH (21:02)
[2019-03-17] MEDS: TOPIRAMATE 25 MG TABLET PO SCH (21:02)
[2019-03-17 21:39] VITALS: BP 110/60
[2019-03-18 00:02] VITALS: BP 112/74
[2019-03-18] MEDS: HALOPERIDOL 5 MG TABLET PO PRN ×2 (00:10→16:29)
[2019-03-18] MEDS: ZOLPIDEM TARTRATE 10 MG TABLET PO PRN (00:10)
[2019-03-18] MEDS: LORazepam 2 MG TABLET PO PRN ×3 (04:10→17:16)
[2019-03-18 08:22] VITALS: BP 124/60
[2019-03-18] MEDS: VENLAFAXINE HCL 75 MG ER CAPSULE PO SCH (09:00)
[2019-03-18] MEDS ORDERED: LURASIDONE HCL 40 MG TABLET PO ONE (11:30)
[2019-03-18 16:20] VITALS: BP 105/78
[2019-03-18] MEDS: LamoTRIgine 100 MG TABLET PO SCH (20:41)
[2019-03-18] MEDS: TOPIRAMATE 25 MG TABLET PO SCH (20:41)
[2019-03-19 00:47] VITALS: BP 109/69
[2019-03-19] MEDS: LORazepam 2 MG TABLET PO PRN ×4 (00:50→13:17)
[2019-03-19 03:35] VITALS: BP 113/88
[2019-03-19] MEDS: IBUPROFEN 400 MG TABLET PO PRN ×2 (03:37→13:15)
[2019-03-19] MEDS: LURASIDONE HCL 40 MG TABLET PO SCH (06:39)
[2019-03-19 08:09] VITALS: BP 118/73
[2019-03-19] MEDS: VENLAFAXINE HCL 75 MG ER CAPSULE PO SCH (08:22)
[2019-03-19] MEDS: HALOPERIDOL 5 MG TABLET PO PRN ×3 (10:52→22:28)
[2019-03-19 16:38] VITALS: BP 132/78
[2019-03-19] MEDS: TOPIRAMATE 25 MG TABLET PO SCH (21:31)
[2019-03-19] MEDS: ZOLPIDEM TARTRATE 10 MG TABLET PO PRN (21:31)
[2019-03-19] MEDS: LamoTRIgine 100 MG TABLET PO SCH (21:31)
[2019-03-20 02:23] VITALS: BP 101/62
[2019-03-20] MEDS: LORazepam 2 MG TABLET PO PRN ×2 (02:25→09:27)
[2019-03-20] MEDS: LURASIDONE HCL 40 MG TABLET PO SCH (06:38)
[2019-03-20 08:00] VITALS: BP 111/79
[2019-03-20] MEDS: VENLAFAXINE HCL 75 MG ER CAPSULE PO SCH (09:26)
[2019-03-20] MEDS: HALOPERIDOL 5 MG TABLET PO PRN (09:27)
[2019-03-20] MEDS ORDERED: LURA40 PO (10:26)
[2019-03-20] MEDS ORDERED: VENL-67 PO (10:26)
[2019-03-20] MEDS ORDERED: SERTRALINE HCL 50 MG TABLET PO SCH (11:30)
[2019-03-20 16:09] VITALS: BP 107/67
== END 2019-03-20 18:40 | disposition home or self-care (01) | DRG 751 ==
LOC: B3A 13:05
PROVIDERS: ADMIT Psychiatry & Neurology Psychiatry; ATTEND Psychiatry & Neurology Psychiatry
DX: F33.2 Major depressive disorder, recurrent severe without psychotic features (principal); G40.909 Epilepsy, unspecified, not intractable, without status epilepticus; E78.5 Hyperlipidemia, unspecified; F41.9 Anxiety disorder, unspecified; G47.00 Insomnia, unspecified; G43.909 Migraine, unspecified, not intractable, without status migrainosus; M79.7 Fibromyalgia; N39.0 Urinary tract infection, site not specified; Z88.8 Allergy status to other drugs, medicaments and biological substances
CPT/HCPCS: 83036; 84439; 84443; 87081

== ENCOUNTER 2019-03-24 22:41 | Inpatient (IN) | payer MEDICAID ==
[~2019-03-24 22:41] MED LIST changes: -ARIP10TA8 PO; +LURA40 PO; -TEMA15CA PO; +VENL-67 PO; -VENL-68 PO
[2019-03-25] MEDS: HALOPERIDOL 5 MG TABLET PO PRN ×3 (04:12→16:43)
[2019-03-25] MEDS: LORazepam 2 MG TABLET PO PRN ×3 (04:12→16:43)
[2019-03-25 04:45] VITALS: BP 127/75
[2019-03-25 07:47] LABS: BASOPHILS % (AUTO) 1.4 % (0.0-2.0); EOSINOPHILS % (AUTO) 6.3 % (1.0-6.0); HEMATOCRIT 37.4 % (36-46); HEMOGLOBIN 12.4 g/dL (12.0-16.0); LYMPHOCYTES # (AUTO) 1.9 K/uL (1.0-4.8); LYMPHOCYTES % (AUTO) 32.9 % (22.0-44.0); MEAN CORPUSCULAR HEMOGLOBIN 30.8 pg (26.0-34.0); MEAN CORPUSCULAR HGB CONC 33.2 G/dL (31.0-37.0); MEAN CORPUSCULAR VOLUME 93 fL (80-100); MONOCYTES # (AUTO) 0.3 K/uL (0.1-1.0); MONOCYTES % (AUTO) 5.8 % (2.0-9.0); NEUTROPHILS # (AUTO) 3.1 K/uL (1.8-7.7); NEUTROPHILS % (AUTO) 53.6 % (40.0-70.0); PLATELET COUNT (AUTO) 335 K/uL (150-450); RED BLOOD CELL COUNT(AUTO) 4.02 MIL/uL (4.00-5.20); RED CELL DISTRIBUTION WIDTH 13.8 % (11.5-14.5)
[2019-03-25 07:50] LABS: HEMOGLOBIN A1C 5.5 % (4.5-6.2)
[2019-03-25 07:59] LABS: ALANINE AMINOTRANSFERASE 16 U/L (12-78); ALBUMIN 3.3 g/dL (3.4-5.0); ALKALINE PHOSPHATASE 77 U/L (46-116); ANION GAP 7 mmol/L (8-16); ASPARTATE AMINOTRANSFERASE 14 U/L (15-37); BILIRUBIN,TOTAL 0.3 mg/dL (0.1-1.0); CALCIUM, TOTAL 8.5 mg/dL (8.8-10.5); CARBON DIOXIDE 26 mmol/L (22-29); CHLORIDE 107 mmol/L (98-107); CHOL/HDL RATIO 3.3 (3.9-5.7); CHOLESTEROL 186 mg/dL (131-200); CREATININE 0.93 mg/dL (0.60-1.30); FREE T4 (FREE THYROXINE) 0.88 ng/dL (0.76-1.46); GLOMERULAR FILTR. RATE CALC > 60 mL/min (>60); GLUCOSE,RANDOM 88 mg/dL (70-110); HDL CHOLESTEROL 56 mg/dL (40-60); LDL CHOL (CALC.) 115 mg/dL (0-130); POTASSIUM 4.5 mmol/L (3.5-5.1); SODIUM SERUM 140 mmol/L (136-145); TOTAL PROTEIN, SERUM 6.4 g/dL (6.4-8.2); TRIGLYCERIDES 74 mg/dL (15-150); UREA NITROGEN, BLOOD 12 mg/dL (7-18)
[2019-03-25 08:04] LABS: AMPHET/METH SCREEN,URINE NEGATIVE (NEGATIVE); BARBITURATE SCREEN, URINE NEGATIVE (NEGATIVE); BENZODIAZEPINES SCREEN,URINE NEGATIVE (NEGATIVE); CANNABINOID SCREEN,URINE NEGATIVE (NEGATIVE); COCAINE SCREEN,URINE NEGATIVE (NEGATIVE); METHADONE SCREEN, URINE NEGATIVE (NEGATIVE); OPIATE SCREEN,URINE NEGATIVE (NEGATIVE)
[2019-03-25 08:05] LABS: PHENCYCLIDINE SCREEN,URINE NEGATIVE (NEGATIVE)
[2019-03-25 08:27] VITALS: BP 112/64
[2019-03-25 15:49] VITALS: BP 99/58
[2019-03-25 16:24] VITALS: BP 99/58
[2019-03-25] MEDS: TOPIRAMATE 25 MG TABLET PO SCH (20:19)
[2019-03-25] MEDS: LamoTRIgine 100 MG TABLET PO SCH (20:19)
[2019-03-25] MEDS: ZOLPIDEM TARTRATE 10 MG TABLET PO PRN (21:47)
[2019-03-26] MEDS: HALOPERIDOL 5 MG TABLET PO PRN ×4 (01:00→23:18)
[2019-03-26] MEDS: LORazepam 2 MG TABLET PO PRN ×4 (01:00→16:46)
[2019-03-26 01:03] VITALS: BP 117/73
[2019-03-26] MEDS ORDERED: CloNIDine HCL 0.1 MG TABLET PO PRN (05:15)
[2019-03-26] MEDS ORDERED: PETROLATUM,WHITE 28 GM JELLY TP PRN (05:15)
[2019-03-26] MEDS ORDERED: IBUPROFEN 400 MG TABLET PO PRN (05:15)
[2019-03-26] MEDS ORDERED: ACETAMINOPHEN 325 MG TABLET PO PRN (05:15)
[2019-03-26] MEDS ORDERED: GuaiFENesin/D-METHORPHAN [SUGAR-FREE] 200-20MG/10 ML SYRUP UDCUP PO PRN (05:15)
[2019-03-26] MEDS ORDERED: DOCUSATE SODIUM 100 MG CAPSULE PO PRN (05:15)
[2019-03-26] MEDS ORDERED: ALBUTEROL SULFATE HFA 90 MCG/PUFF 8 GM INHALER IH PRN (05:15)
[2019-03-26] MEDS ORDERED: LOPERAMIDE HCL 2 MG CAPSULE PO PRN (05:15)
[2019-03-26] MEDS ORDERED: MAGNESIUM HYDROXIDE SUSPENSION 30 ML UDCUP PO PRN (05:15)
[2019-03-26] MEDS ORDERED: ONDANSETRON HCL 4 MG TABLET PO PRN (05:15)
[2019-03-26] MEDS ORDERED: MAG HYDROX/AL HYDROX/SIMETH ES 30 ML SUSPENSION UDCUP PO PRN (05:15)
[2019-03-26] MEDS: LURASIDONE HCL 40 MG TABLET PO SCH (07:00)
[2019-03-26 08:03] VITALS: BP 115/60
[2019-03-26] MEDS ORDERED: VENLAFAXINE HCL 75 MG ER CAPSULE PO SCH (09:00)
[2019-03-26 16:03] VITALS: BP 104/64
[2019-03-26] MEDS: LamoTRIgine 100 MG TABLET PO SCH (20:10)
[2019-03-26] MEDS: TOPIRAMATE 25 MG TABLET PO SCH (20:10)
[2019-03-26] MEDS: ZOLPIDEM TARTRATE 10 MG TABLET PO PRN (20:56)
[2019-03-27 01:16] VITALS: BP 104/68
[2019-03-27] MEDS: LORazepam 2 MG TABLET PO PRN ×3 (03:44→15:12)
[2019-03-27] MEDS: LURASIDONE HCL 40 MG TABLET PO SCH (06:46)
[2019-03-27] MEDS: HALOPERIDOL 5 MG TABLET PO PRN ×2 (07:06→15:12)
[2019-03-27] MEDS: SERTRALINE HCL 50 MG TABLET PO SCH (09:01)
[2019-03-27 14:59] VITALS: BP 122/74
[2019-03-27 16:18] VITALS: BP 105/70
[2019-03-27] MEDS: TOPIRAMATE 25 MG TABLET PO SCH (20:16)
[2019-03-27] MEDS: LamoTRIgine 100 MG TABLET PO SCH (20:16)
[2019-03-27] MEDS: ZOLPIDEM TARTRATE 10 MG TABLET PO PRN (21:39)
[2019-03-28] MEDS: LORazepam 2 MG TABLET PO PRN ×4 (01:18→15:54)
[2019-03-28] MEDS: HALOPERIDOL 5 MG TABLET PO PRN ×3 (01:18→12:45)
[2019-03-28 01:26] VITALS: BP 109/76
[2019-03-28 05:44] VITALS: BP 109/68
[2019-03-28] MEDS: LURASIDONE HCL 40 MG TABLET PO SCH (06:11)
[2019-03-28 08:32] VITALS: BP 112/56
[2019-03-28] MEDS: SERTRALINE HCL 50 MG TABLET PO SCH (08:49)
[2019-03-28 13:50] VITALS: BP 115/64
[2019-03-28 16:20] VITALS: BP 122/71
[2019-03-28] MEDS: TOPIRAMATE 25 MG TABLET PO SCH (20:27)
[2019-03-28] MEDS: LamoTRIgine 100 MG TABLET PO SCH (20:27)
[2019-03-29 00:16] VITALS: BP 110/62
[2019-03-29] MEDS: ZOLPIDEM TARTRATE 10 MG TABLET PO PRN (00:25)
[2019-03-29] MEDS: HALOPERIDOL 5 MG TABLET PO PRN ×3 (00:25→11:16)
[2019-03-29] MEDS: LORazepam 2 MG TABLET PO PRN ×4 (04:07→20:05)
[2019-03-29] MEDS: LURASIDONE HCL 40 MG TABLET PO SCH (06:57)
[2019-03-29] MEDS: SERTRALINE HCL 50 MG TABLET PO SCH (08:05)
[2019-03-29 08:13] VITALS: BP 158/49
[2019-03-29] MEDS ORDERED: SERTRALINE HCL 50 MG TABLET PO ONE (11:30)
[2019-03-29 16:03] VITALS: BP 115/61
[2019-03-29] MEDS: LamoTRIgine 100 MG TABLET PO SCH (20:01)
[2019-03-29] MEDS: TOPIRAMATE 25 MG TABLET PO SCH (20:01)
[2019-03-30 00:03] VITALS: BP 121/79
[2019-03-30] MEDS: ZOLPIDEM TARTRATE 10 MG TABLET PO PRN (00:14)
[2019-03-30] MEDS: HALOPERIDOL 5 MG TABLET PO PRN ×2 (03:29→08:28)
[2019-03-30] MEDS: LORazepam 2 MG TABLET PO PRN ×2 (04:30→08:28)
[2019-03-30] MEDS: LURASIDONE HCL 40 MG TABLET PO SCH (06:29)
[2019-03-30 08:09] VITALS: BP 108/73
[2019-03-30] MEDS ORDERED: SERTRALINE HCL 50 MG TABLET PO SCH (09:00)
[2019-03-30] MEDS ORDERED: SERT100T12 PO (11:23)
[2019-03-31] MEDS ORDERED: LURASIDONE HCL 40 MG TABLET PO SCH (07:00)
== END 2019-03-30 13:20 | disposition home or self-care (01) | DRG 751 ==
LOC: B3A 03-25 02:00 → B2X 03-28 09:23
PROVIDERS: ADMIT Psychiatry & Neurology Psychiatry; ATTEND Psychiatry & Neurology Psychiatry
DX: F33.2 Major depressive disorder, recurrent severe without psychotic features (principal); F25.9 Schizoaffective disorder, unspecified; R45.851 Suicidal ideations; F43.10 Post-traumatic stress disorder, unspecified; F10.10 Alcohol abuse, uncomplicated; G40.909 Epilepsy, unspecified, not intractable, without status epilepticus; E78.5 Hyperlipidemia, unspecified; G43.909 Migraine, unspecified, not intractable, without status migrainosus; M79.7 Fibromyalgia; F41.9 Anxiety disorder, unspecified; Z79.899 Other long term (current) drug therapy; Z91.5 Personal history of self-harm; Z88.8 Allergy status to other drugs, medicaments and biological substances
CPT/HCPCS: 80307; 83036; 84439; 84443; 87081; 87086

== ENCOUNTER 2019-07-01 10:28 | Inpatient (IN) | payer MEDICAID ==
[~2019-07-01] VITALS: Ht 157.5 cm; Wt 58.1 kg
[~2019-07-01 10:28] MED LIST changes: +SERT100T12 PO; -VENL-67 PO
[2019-07-01] MEDS ORDERED: ZOLPIDEM TARTRATE 10 MG TABLET PO PRN (10:45)
[2019-07-01 11:15] VITALS: BP 125/78
[2019-07-01 11:39] VITALS: BP 134/84
[2019-07-01] MEDS ORDERED: GABA-531 PO (11:43)
[2019-07-01] MEDS ORDERED: TRAZ-220 PO (11:43)
[2019-07-01] MEDS ORDERED: DESV100T PO (11:43)
[2019-07-01] MEDS: LORazepam 1 MG TABLET PO PRN ×2 (12:14→14:36)
[2019-07-01] MEDS ORDERED: INFLUENZA VIRUS VACCINE QVS 2019-20 (3YR+)/PF 60 MCG/0.5 ML SYRINGE IM ONE (12:30)
[2019-07-01] MEDS ORDERED: *NON-FORMULARY MED [ENTER DRUG, DOSE, FREQ IN COMMENTS] CLINICAL ONE (12:45)
[2019-07-01] MEDS: GABAPENTIN 300 MG CAPSULE PO SCH (13:10)
[2019-07-01] MEDS ORDERED: CloNIDine HCL 0.1 MG TABLET PO PRN (14:30)
[2019-07-01] MEDS ORDERED: ONDANSETRON HCL 4 MG TABLET PO PRN (14:30)
[2019-07-01] MEDS ORDERED: LOPERAMIDE HCL 2 MG CAPSULE PO PRN (14:30)
[2019-07-01] MEDS ORDERED: MAGNESIUM HYDROXIDE SUSPENSION 30 ML UDCUP PO PRN (14:30)
[2019-07-01] MEDS ORDERED: NICOTINE 14 MG/24 HOUR PATCH TD PRN (14:30)
[2019-07-01] MEDS ORDERED: IBUPROFEN 400 MG TABLET PO PRN (14:30)
[2019-07-01] MEDS ORDERED: GuaiFENesin/D-METHORPHAN [SUGAR-FREE] 200-20MG/10 ML SYRUP UDCUP PO PRN (14:30)
[2019-07-01] MEDS ORDERED: PETROLATUM,WHITE 28 GM JELLY TP PRN (14:30)
[2019-07-01] MEDS ORDERED: DOCUSATE SODIUM 100 MG CAPSULE PO PRN (14:30)
[2019-07-01] MEDS ORDERED: ACETAMINOPHEN 325 MG TABLET PO PRN (14:30)
[2019-07-01] MEDS ORDERED: MAG HYDROX/AL HYDROX/SIMETH ES 30 ML SUSPENSION UDCUP PO PRN (14:30)
[2019-07-01] MEDS ORDERED: ALBUTEROL SULFATE HFA 90 MCG/PUFF 8 GM INHALER IH PRN (14:30)
[2019-07-01 16:00] VITALS: BP 124/81
[2019-07-01] MEDS: BENZTROPINE MESYLATE 1 MG TABLET PO PRN (17:17)
[2019-07-01] MEDS: HALOPERIDOL 5 MG TABLET PO PRN (17:18)
[2019-07-01] MEDS: TOPIRAMATE 25 MG TABLET PO SCH (20:23)
[2019-07-01] MEDS: LamoTRIgine 100 MG TABLET PO SCH (20:23)
[2019-07-01] MEDS: GABAPENTIN 400 MG CAPSULE PO SCH (20:23)
[2019-07-01] MEDS: TraZODone HCL 100 MG TABLET PO SCH (20:23)
[2019-07-02 00:05] VITALS: BP 121/69
[2019-07-02] MEDS: LORazepam 1 MG TABLET PO PRN ×4 (05:12→17:15)
[2019-07-02] MEDS: GABAPENTIN 300 MG CAPSULE PO SCH (08:04)
[2019-07-02] MEDS: HALOPERIDOL 5 MG TABLET PO PRN ×2 (08:04→17:15)
[2019-07-02] MEDS: PATIENT'S OWN MEDICATION PO SCH (08:05)
[2019-07-02] MEDS: BENZTROPINE MESYLATE 1 MG TABLET PO PRN (08:05)
[2019-07-02 08:13] LABS: BASOPHILS % (AUTO) 1.8 % (0.0-2.0); EOSINOPHILS % (AUTO) 6.6 % (1.0-6.0); HEMATOCRIT 36.7 % (36-46); HEMOGLOBIN 12.4 g/dL (12.0-16.0); LYMPHOCYTES # (AUTO) 1.5 K/uL (1.0-4.8); MEAN CORPUSCULAR HEMOGLOBIN 31.7 pg (26.0-34.0); MEAN CORPUSCULAR HGB CONC 33.7 G/dL (31.0-37.0); MEAN CORPUSCULAR VOLUME 94 fL (80-100); MONOCYTES # (AUTO) 0.3 K/uL (0.1-1.0); NEUTROPHILS # (AUTO) 2.4 K/uL (1.8-7.7); NEUTROPHILS % (AUTO) 51.6 % (40.0-70.0); PLATELET COUNT (AUTO) 295 K/uL (150-450); RED CELL DISTRIBUTION WIDTH 14.2 % (11.5-14.5)
[2019-07-02 08:36] VITALS: BP 125/67
[2019-07-02 08:50] LABS: ALANINE AMINOTRANSFERASE 10 U/L (12-78); ALBUMIN 3.3 g/dL (3.4-5.0); ALKALINE PHOSPHATASE 61 U/L (46-116); ANION GAP 9 mmol/L (8-16); ASPARTATE AMINOTRANSFERASE 16 U/L (15-37); BILIRUBIN,TOTAL 0.4 mg/dL (0.1-1.0); CALCIUM, TOTAL 8.6 mg/dL (8.8-10.5); CARBON DIOXIDE 23 mmol/L (22-29); CHLORIDE 105 mmol/L (98-107); CHOL/HDL RATIO 3.3 (3.9-5.7); CHOLESTEROL 209 mg/dL (131-200); CREATININE 0.96 mg/dL (0.60-1.30); FREE T4 (FREE THYROXINE) 0.96 ng/dL (0.76-1.46); GLOMERULAR FILTR. RATE CALC > 60 mL/min (>60); GLUCOSE,RANDOM 86 mg/dL (70-110); HCG,QUANTITATIVE < 1 mIU/mL (0-6); HDL CHOLESTEROL 63 mg/dL (40-60); LDL CHOL (CALC.) 133 mg/dL (0-130); POTASSIUM 3.5 mmol/L (3.5-5.1); SODIUM SERUM 137 mmol/L (136-145); THYROID STIMULATING HORMONE 1.41 uIU/mL (0.36-3.74); TRIGLYCERIDES 64 mg/dL (15-150); UREA NITROGEN, BLOOD 15 mg/dL (7-18)
[2019-07-02 16:00] VITALS: BP 104/61
[2019-07-02] MEDS: TOPIRAMATE 25 MG TABLET PO SCH (20:26)
[2019-07-02] MEDS: GABAPENTIN 400 MG CAPSULE PO SCH (20:26)
[2019-07-02] MEDS: TraZODone HCL 100 MG TABLET PO SCH (20:27)
[2019-07-02] MEDS: LamoTRIgine 100 MG TABLET PO SCH (20:27)
[2019-07-03 02:52] VITALS: BP 124/70
[2019-07-03] MEDS: LORazepam 1 MG TABLET PO PRN ×4 (02:53→15:18)
[2019-07-03] MEDS: HALOPERIDOL 5 MG TABLET PO PRN ×2 (06:55→14:25)
[2019-07-03 08:34] VITALS: BP 105/71
[2019-07-03] MEDS: GABAPENTIN 300 MG CAPSULE PO SCH (09:40)
[2019-07-03] MEDS: PATIENT'S OWN MEDICATION PO SCH (09:40)
[2019-07-03 16:12] VITALS: BP 108/71
[2019-07-03] MEDS: GABAPENTIN 400 MG CAPSULE PO SCH (20:55)
[2019-07-03] MEDS: TOPIRAMATE 25 MG TABLET PO SCH (20:56)
[2019-07-03] MEDS: TraZODone HCL 100 MG TABLET PO SCH (20:56)
[2019-07-03] MEDS: LamoTRIgine 100 MG TABLET PO SCH (20:56)
[2019-07-04 01:39] VITALS: BP 103/62
[2019-07-04] MEDS: HALOPERIDOL 5 MG TABLET PO PRN ×2 (02:55→10:12)
[2019-07-04] MEDS: LORazepam 1 MG TABLET PO PRN ×2 (02:55→07:14)
[2019-07-04 08:46] VITALS: BP 103/63
[2019-07-04] MEDS: GABAPENTIN 300 MG CAPSULE PO SCH (08:57)
[2019-07-04] MEDS ORDERED: PATIENT'S OWN MEDICATION PO SCH (09:00)
[2019-07-04] MEDS ORDERED: GABA-531 PO (10:36)
[2019-07-04] MEDS ORDERED: GABA-533 PO (10:36)
[2019-07-04] MEDS ORDERED: HALO5TAB2 PO (10:38)
== END 2019-07-04 13:30 | disposition home or self-care (01) | DRG 754 ==
LOC: B2S 11:09
PROVIDERS: ADMIT Psychiatry & Neurology Psychiatry; ATTEND Psychiatry & Neurology Psychiatry
DX: F32.9 Major depressive disorder, single episode, unspecified (principal); R45.851 Suicidal ideations; G40.909 Epilepsy, unspecified, not intractable, without status epilepticus; E78.5 Hyperlipidemia, unspecified; F10.10 Alcohol abuse, uncomplicated; G43.909 Migraine, unspecified, not intractable, without status migrainosus; F19.10 Other psychoactive substance abuse, uncomplicated; G89.4 Chronic pain syndrome; M79.7 Fibromyalgia; F41.9 Anxiety disorder, unspecified; R53.82 Chronic fatigue, unspecified; F17.210 Nicotine dependence, cigarettes, uncomplicated; Z91.5 Personal history of self-harm; Z71.41 Alcohol abuse counseling and surveillance of alcoholic; Z71.51 Drug abuse counseling and surveillance of drug abuser
CPT/HCPCS: 84439; 84443

== ENCOUNTER 2020-05-20 15:04 | Inpatient (IN) | payer MEDICAID, OTHER ==
[~2020-05-20] VITALS: Ht 157.5 cm; Wt 50.0 kg
[~2020-05-20 15:04] MED LIST changes: +DESV100T PO; +GABA-1181 PO; +GABA-1201 PO; +HALO5TAB2 PO; -LURA40 PO; -SERT100T12 PO; +TRAZ-257 PO
[2020-05-20] MEDS ORDERED: BUPR75 PO (15:18)
[2020-05-20] MEDS ORDERED: VENL-67 PO (15:18)
[2020-05-20 16:12] LABS: BASOPHILS % (AUTO) 1.3 % (0.0-2.0); EOSINOPHILS % (AUTO) 5.4 % (1.0-6.0); HEMATOCRIT 42.3 % (36-46); HEMOGLOBIN 13.7 g/dL (12.0-16.0); LYMPHOCYTES # (AUTO) 1.3 K/uL (1.0-4.8); LYMPHOCYTES % (AUTO) 24.5 % (22.0-44.0); MEAN CORPUSCULAR HEMOGLOBIN 29.5 pg (26.0-34.0); MEAN CORPUSCULAR HGB CONC 32.4 G/dL (31.0-37.0); MEAN CORPUSCULAR VOLUME 91 fL (80-100); MONOCYTES # (AUTO) 0.4 K/uL (0.1-1.0); MONOCYTES % (AUTO) 7.2 % (2.0-9.0); NEUTROPHILS # (AUTO) 3.2 K/uL (1.8-7.7); NEUTROPHILS % (AUTO) 61.6 % (40.0-70.0); PLATELET COUNT (AUTO) 257 K/uL (150-450); RED BLOOD CELL COUNT(AUTO) 4.64 MIL/uL (4.00-5.20); RED CELL DISTRIBUTION WIDTH 12.9 % (11.5-14.5)
[2020-05-20 16:22] LABS: ANION GAP 12 mmol/L (8-16); CALCIUM, TOTAL 8.9 mg/dL (8.8-10.5); CARBON DIOXIDE 25 mmol/L (22-29); CHLORIDE 100 mmol/L (98-107); CREATININE 0.82 mg/dL (0.60-1.30); GLOMERULAR FILTR. RATE CALC > 60 mL/min (>60); GLUCOSE,RANDOM 84 mg/dL (70-110); POTASSIUM 3.5 mmol/L (3.5-5.1); SODIUM SERUM 137 mmol/L (136-145); UREA NITROGEN, BLOOD 10 mg/dL (7-18)
[2020-05-20 16:34] LABS: ACETAMINOPHEN < 2 mcg/mL (10-30); ALANINE AMINOTRANSFERASE 33 U/L (12-78); ALBUMIN 3.8 g/dL (3.4-5.0); ALKALINE PHOSPHATASE 46 U/L (46-116); ASPARTATE AMINOTRANSFERASE 24 U/L (15-37); BILIRUBIN,TOTAL 0.7 mg/dL (0.1-1.0); HCG,QUANTITATIVE < 1 mIU/mL (0-6); TOTAL PROTEIN, SERUM 6.9 g/dL (6.4-8.2)
[2020-05-20 16:39] LABS: SALICYLATE < 0.2 mg/dL (2.8-20.0)
[2020-05-20 20:02] LABS: AMPHET/METH SCREEN,URINE POSITIVE (NEGATIVE); BARBITURATE SCREEN, URINE NEGATIVE (NEGATIVE); BENZODIAZEPINES SCREEN,URINE NEGATIVE (NEGATIVE); CANNABINOID SCREEN,URINE NEGATIVE (NEGATIVE); COCAINE SCREEN,URINE NEGATIVE (NEGATIVE); METHADONE SCREEN, URINE NEGATIVE (NEGATIVE); OPIATE SCREEN,URINE NEGATIVE (NEGATIVE)
[2020-05-20 20:08] LABS: PHENCYCLIDINE SCREEN,URINE NEGATIVE (NEGATIVE)
[2020-05-20] MEDS ORDERED: TUBERCULIN, PURIFIED PROTEIN DERIVATIVE 5 TU/0.1 ML SYRINGE ID ONE (20:30)
[2020-05-20] MEDS ORDERED: LOPERAMIDE HCL 2 MG CAPSULE PO PRN (20:30)
[2020-05-20] MEDS ORDERED: MAGNESIUM HYDROXIDE SUSPENSION 30 ML UDCUP PO PRN (20:30)
[2020-05-20] MEDS ORDERED: HydrOXYzine PAMOATE 50 MG CAPSULE PO PRN (20:30)
[2020-05-20] MEDS ORDERED: ACETAMINOPHEN 325 MG TABLET PO PRN (20:30)
[2020-05-20] MEDS ORDERED: PROMETHAZINE HCL 25 MG TABLET PO PRN (20:30)
[2020-05-20] MEDS ORDERED: LORazepam 2 MG TABLET PO PRN (20:30)
[2020-05-20] MEDS ORDERED: GuaiFENesin/D-METHORPHAN [SUGAR-FREE] 200-20MG/10 ML SYRUP UDCUP PO PRN (20:30)
[2020-05-20] MEDS ORDERED: QUEtiapine FUMARATE 100 MG TABLET PO PRN (20:30)
[2020-05-20] MEDS ORDERED: MAG HYDROX/AL HYDROX/SIMETH ES 30 ML SUSPENSION UDCUP PO PRN (20:30)
[2020-05-20] MEDS ORDERED: GABAPENTIN 400 MG CAPSULE PO SCH (21:00)
[2020-05-20] MEDS: THIAMINE 100 MG TABLET PO SCH (21:24)
[2020-05-20] MEDS ORDERED: DIAZEPAM 10 MG TABLET PO PRN (21:45)
[2020-05-21] VITALS (10 sets, daily range): BP systolic 102–115; BP diastolic 58–80
[2020-05-21] MEDS: ZOLPIDEM TARTRATE 10 MG TABLET PO PRN (00:59)
[2020-05-21] MEDS ORDERED: DIAZEPAM 10 MG TABLET PO PRN (07:00)
[2020-05-21 08:25] LABS: BASOPHILS % (AUTO) 1.8 % (0.0-2.0); EOSINOPHILS % (AUTO) 9.4 % (1.0-6.0); HEMATOCRIT 38.7 % (36-46); LYMPHOCYTES # (AUTO) 1.2 K/uL (1.0-4.8); LYMPHOCYTES % (AUTO) 33.1 % (22.0-44.0); MEAN CORPUSCULAR HGB CONC 33.6 G/dL (31.0-37.0); MEAN CORPUSCULAR VOLUME 92 fL (80-100); MONOCYTES # (AUTO) 0.3 K/uL (0.1-1.0); MONOCYTES % (AUTO) 8.8 % (2.0-9.0); NEUTROPHILS # (AUTO) 1.7 K/uL (1.8-7.7); NEUTROPHILS % (AUTO) 46.9 % (40.0-70.0); PLATELET COUNT (AUTO) 226 K/uL (150-450); RED CELL DISTRIBUTION WIDTH 13.1 % (11.5-14.5)
[2020-05-21 08:39] LABS: HEMOGLOBIN A1C 5.2 % (3.8-5.6)
[2020-05-21 09:10] LABS: CHOL/HDL RATIO 4.1 (3.9-5.7); FREE T4 (FREE THYROXINE) 1.1 ng/dL (0.76-1.46); THYROID STIMULATING HORMONE 1.31 uIU/mL (0.36-3.74)
[2020-05-21] MEDS: ACAMPROSATE CALCIUM 333 MG DR TABLET PO SCH ×2 (09:15→12:40)
[2020-05-21] MEDS: GABAPENTIN 300 MG CAPSULE PO SCH ×3 (09:15→16:41)
[2020-05-21] MEDS: MULTIVITAMINS WITH MINERALS, THERAPEUTIC TABLET PO SCH (09:15)
[2020-05-21] MEDS: DULoxetine HCL 20 MG CAPSULE PO SCH (09:15)
[2020-05-21] MEDS: FOLIC ACID 1 MG TABLET PO SCH (09:15)
[2020-05-21] MEDS: THIAMINE 100 MG TABLET PO SCH ×2 (09:15→16:41)
[2020-05-21] MEDS: DIAZEPAM 10 MG TABLET PO SCH ×4 (09:16→20:26)
[2020-05-22 00:25] VITALS: BP 105/64
[2020-05-22 01:26] VITALS: BP 100/72
[2020-05-22 08:08] VITALS: BP 108/65
[2020-05-22] MEDS: THIAMINE 100 MG TABLET PO SCH ×2 (08:23→16:17)
[2020-05-22] MEDS: GABAPENTIN 300 MG CAPSULE PO SCH ×3 (08:23→16:17)
[2020-05-22] MEDS: DULoxetine HCL 20 MG CAPSULE PO SCH (08:23)
[2020-05-22] MEDS: DIAZEPAM 10 MG TABLET PO SCH ×4 (08:23→20:18)
[2020-05-22] MEDS: MULTIVITAMINS WITH MINERALS, THERAPEUTIC TABLET PO SCH (08:23)
[2020-05-22] MEDS: NALTREXONE HCL 50 MG TABLET PO SCH (08:23)
[2020-05-22] MEDS: FOLIC ACID 1 MG TABLET PO SCH (08:23)
[2020-05-22 08:31] VITALS: BP 108/65
[2020-05-22 16:21] VITALS: BP 100/75
[2020-05-22 19:18] VITALS: BP 100/75
[2020-05-22] MEDS: PREGABALIN 50 MG CAPSULE PO SCH (19:39)
[2020-05-23] MEDS: ZOLPIDEM TARTRATE 10 MG TABLET PO PRN (00:53)
[2020-05-23 02:30] VITALS: BP 117/72
[2020-05-23 04:06] VITALS: BP 120/72
[2020-05-23] MEDS ORDERED: DIAZEPAM 5 MG TABLET PO PRN (07:00)
[2020-05-23] MEDS: MULTIVITAMINS WITH MINERALS, THERAPEUTIC TABLET PO SCH (08:06)
[2020-05-23] MEDS: NALTREXONE HCL 50 MG TABLET PO SCH (08:06)
[2020-05-23] MEDS: THIAMINE 100 MG TABLET PO SCH (08:06)
[2020-05-23] MEDS: FOLIC ACID 1 MG TABLET PO SCH (08:06)
[2020-05-23] MEDS: DIAZEPAM 5 MG TABLET PO SCH ×2 (08:06→12:43)
[2020-05-23] MEDS: PREGABALIN 50 MG CAPSULE PO SCH ×2 (08:06→12:43)
[2020-05-23] MEDS ORDERED: VENLAFAXINE HCL 75 MG ER CAPSULE PO SCH (09:00)
[2020-05-23 09:08] VITALS: BP 108/64
[2020-05-23 09:09] VITALS: BP 108/64
[2020-05-23] MEDS ORDERED: NALT50TA PO (15:08)
[2020-05-23] MEDS ORDERED: PREG50 PO (15:08)
[2020-05-23] MEDS ORDERED: VENL-67 PO (15:08)
[2020-05-23 16:47] VITALS: BP 106/62
[2020-05-23 16:48] VITALS: BP 106/62
[2020-05-24] MEDS ORDERED: DIAZEPAM 5 MG TABLET PO PRN (07:00)
== END 2020-05-23 19:00 | disposition home or self-care (01) | DRG 885 ==
LOC: EMS 15:08 → B2S 20:20
PROVIDERS: ADMIT Psychiatry & Neurology Psychiatry; ATTEND Psychiatry & Neurology Psychiatry
DX: F33.2 Major depressive disorder, recurrent severe without psychotic features (principal); R45.851 Suicidal ideations; F43.10 Post-traumatic stress disorder, unspecified; G40.909 Epilepsy, unspecified, not intractable, without status epilepticus; M79.7 Fibromyalgia; E78.5 Hyperlipidemia, unspecified; Z79.899 Other long term (current) drug therapy; Z87.891 Personal history of nicotine dependence; Z91.19 Patient's noncompliance with other medical treatment and regimen; Z91.5 Personal history of self-harm
CPT/HCPCS: 83036; 84439; 84443; 86592; G0480; G0481